=== PATIENT | female | born 1990 | race Caucasian/White ===

== ENCOUNTER 2021-02-20 21:12 | Emergency (ER) | payer OTHER ==
[~2021-02-20 21:12] MED LIST: COLACE 100MG C100 MG PO; IBUPROFEN600 MG PO; PRENATAL VITAM1 EAC5 PO; SUBUTEX 8 MG TAB8 MG SC; SUBUTEX 8 MG TAB8 MG SL; ZANTAC 150 MG150 MG PO
[2021-02-20 21:51] LABS: HEMOGLOBIN 15.8 gm/dl (12.3-15.3); RED BLOOD COUNT 5.19 M/UL (4.00-5.10)
[2021-02-20 22:23] LABS: BUN/CREATININE RATIO 13 (0-10)
[2021-02-20] MEDS ORDERED: LODINE CAP 300300 MG PO (23:27)
[2021-02-20] MEDS ORDERED: DOXYCYCLINE MO100 MG PO (23:27)
== END 2021-02-20 23:30 | disposition home or self-care (01) ==
LOC: ER1 21:12
PROVIDERS: Emergency Medicine
DX: L73.9 Follicular disorder, unspecified (principal); F17.210 Nicotine dependence, cigarettes, uncomplicated
CPT/HCPCS: 80053; 83605; 85025; 85652; 86140; 99283